=== PATIENT | male | born 1955 | race Caucasian/White ===

== ENCOUNTER 2020-11-24 14:33 | Inpatient (IN) | payer OTHER ==
[~2020-11-24 14:33] MED LIST: Iopamidol-370 76% 500 ML 1 ML ONE
--- NOTE | 2020-11-24 15:00 | CT ---
CT HEAD WITHOUT CONTRAST: 11/24/20 INDICATIONS: Stroke alert. Aphasia. COMPARISON: Comparison made to prior head CT of 05/13/08. FINDINGS: Ventricles have normal size and position. There is no evidence of intracranial mass or hemorrhage. No evidence of acute cortical infarct. Paranasal sinuses and mastoids clear. IMPRESSION: No acute process. No evidence of acute infarct. Findings relayed to Dr. Elizabeth at 2:55 p.m. POS: OFF
[2020-11-24 15:02] LABS: #Basophils 0.1 thou/uL (0.0-0.2); #Eosinphils 0.1 thou/uL (0.0-0.7); #Lymphocytes 2.1 thou/uL (1.20-3.40); #Neutrophils 4.3 thou/uL (1.40-6.50); %Basophils 0.7 % (0.0-1.0); %Eosinophils 1.6 % (0.0-10.0); %Monocytes 13.6 % (0.0-10.0); %Neutrophils 56.2 % (42.0-75.0); Hemoglobin 15.3 g/dL (14.0-18.0); Mean Corpuscular HGB CONC 33.4 g/dL (32.0-36.0); Mean Corpuscular Hemoglobin 32.4 pg (27.0-31.0); Mean Corpuscular Volume 96.9 fL (78.0-98.0); Platelet Count 195 thou/uL (130-400); RBC Distribution Width 11.5 % (11.5-14.5); Red Blood Cell (RBC) Count 4.71 mill/uL (4.70-6.10); White Blood Cell (WBC) Count 7.6 thou/uL (4.8-10.8)
[2020-11-24 15:10] LABS: Prothrombin Time 13.5 sec (12.0-14.7)
[2020-11-24 15:17] LABS: PTT 21.6 sec (22.9-36.1)
[2020-11-24 15:35] LABS: Albumin 3.3 g/dL (3.4-4.8)
[2020-11-24 15:36] LABS: Chloride 106 mmol/L (98-107); Potassium 5.1 mmol/L (3.5-5.1); Sodium 136 mmol/L (136-145)
[2020-11-24 15:37] LABS: Glucose 104 mg/dL (80-115)
[2020-11-24 15:38] LABS: Globulin 4.9 g/dL (2.4-3.5); Protein, Total 8.2 g/dL (5.8-8.1)
[2020-11-24 15:39] LABS: Anion Gap 15 mmol/L (10-20); Bilirubin, Total 1.1 mg/dL (0.2-1.2); Carbon Dioxide 20 mmol/L (23-31)
[2020-11-24 15:40] LABS: Alkaline Phosphatase 125 U/L (40-110)
[2020-11-24 15:41] LABS: BUN (Urea Nitrogen) 18 mg/dL (8.4-25.7); Calc. Creatinine Clearance 0 mL/min (70-130)
[2020-11-24 15:42] LABS: AST (SGOT) 76 U/L (5-34)
[2020-11-24 15:43] LABS: ALT (SGPT) 129 U/L (8-55)
--- NOTE | 2020-11-24 15:54 | CT ---
CTA HEAD CTA NECK: Axial tomograms were obtained through the head and neck following angio protocol with multiplanar rec onstruction and 3D post processing. INDICATION: Stroke protocol. Right side weakness and aphasia. FINDINGS: CTA HEAD: The intracranial internal carotid arteries are patent and symmetric. Cavernous ICAs are patent and s ymmetric. The ICA terminus appears symmetric bilaterally and the M1 segments of both middle cerebral arteries a re patent and symmetric. There is mild narrowing of the A1 segment on the right seen on axial images , although not well confirmed on coronal. Anterior cerebral arteries otherwise unremarkable. Review of the M2 and M3 branches of the middle cerebral arteries show evidence of occlusion of a sing le left M2 branch at the genu on the left in the anterior sylvian fissure. This does result in decre ased parasylvian arteries on the left when compared to the right. The M2 and M3 branches on the right appear patent. Basilar artery is patent. Posterior cerebral arteries appear patent and symmetric. IMPRESSION: Evidence of an occlusion of a proximal left M2 branch at the genu in the region of the anterior sylvi an fissure on the left. CTA NECK: No stenosis seen at the origin of the arch vessels. Common carotid arteries are patent and symmetric . Mild atherosclerotic calcification in both bulbs; however, no stenosis is seen in either extracran ial internal carotid artery. Vertebral arteries are patent. Mildly dominant right vertebral. Vertebrals otherwise unremarkable. IMPRESSION: No significant stenosis in either extracranial internal carotid artery. Findings related to Dr. Elizabeth. CODE CR POS: OFF
--- NOTE | 2020-11-24 17:14 | PDOC.HHP ---
Hospitalist HPI - History of Present Illness Right weakness, expressive aphasia History of Present Illness: PCP: Dr. Guerrero The patient is a 65-year-old male with a past medical history significant for hypertension and psoriatic arthritis that presents to the emergency department via EMS as a stroke alert. The patient's spouse reports the acute onset of right-sided weakness and facial droop with expressive aphasia 45 minutes prior to arrival to the emergency department. Documented last seen normal time of 1425. Also, he tested positive for COVID-19 virus on 11/09/2020. His symptoms persisted, so a follow up CXR was ordered. Subsequently, he was diagnosed with "pneumonia". He was started on a doxycycline. Since, he reports feeling fairly well. He denies any recent trauma or falls. No headaches, dysphagia or changes in vision. Denies chest pain, heart palpitations or lightheadedness. No swelling to his lower extremities. No history of DVT/PE. Denies any dysuria or hematuria. EMS was called. Upon arrival, the patient was noted be tachycardic with normal blood pressure, respiratory rate, SPO2, and was afebrile. He was brought to the hospital for further evaluation. Upon arrival to the ED, the patient's symptoms had improved. There was noted expressive aphasia, however, his right-sided weakness had improved. CTA head showed an occlusion to the left M2 branch in the region of the anterior sylvian fissure on the left. Neurosurgery was consulted and the decision was made to give TPA. The patient was amenable. ED Course: VITAL SIGNS SunNov 24, 2020 14:42 DAPHNEY Mendoza Mckenna BP: 127/91, Pulse: 99, Resp: 21, Temp: 98.9 (Oral), O2 sat: 96 on (Room Air), Time: 11/24/2020 14:42. VITAL SIGNS SunNov 24, 2020 16:00 DAPHNEY Walsh Rachel BP: 138/89, Pulse: 75, Resp: 16, Temp: 98.4 (Oral), Pain: 0, O2 sat: 98 on (Room Air), Time: 11/24/2020 16:00. VITAL SIGNS SunNov 24, 2020 16:15 DAPHNEY Walsh Rachel BP: 131/87, Pulse: 76, Resp: 17, Pain: 0, O2 sat: 97 on (Room Air), Time: 11/24/2020 16:15. VITAL SIGNS SunNov 24, 2020 16:30 DAPHNEY Walsh Rachel BP: 127/87, Pulse: 88, Resp: 17, Pain: 0, O2 sat: 97 on (Room Air), Time: 11/24/2020 16:30. VITAL SIGNS SunNov 24, 2020 16:45 DAPHNEY Walsh Rachel BP: 117/72, Pulse: 79, Resp: 18, Pain: 0, O2 sat: 97 on (Room Air), Time: 11/24/2020 16:45 Medications: Activase per protocol mg IV Push Given 16:12 11/24/2020 Hospitalist ROS - Review of Systems All other systems reviewed; all pertinent +/- noted in HPI/Subj - Medication Medications: doxycycline hyclate oral SunNov 24, 2020 15:16 DAPHNEY Garner Amanda tablet : Strength - 100 mg : ORAL Patient Dose: 1 tab(s) 2 times a day.FOR 10 DAYS. predniSONE SunNov 24, 2020 15:16 DAPHNEY Garner Amanda tablet : Strength - 1 mg : ORAL Patient Dose: 1 tab(s) 4 times a day. losartan-hydrochlorothiazide SunNov 24, 2020 15:17 DAPHNEY Garner Amanda tablet : Strength - 50 mg-12.5 mg : ORAL Patient Dose: 1 tab(s) once a day. Enbrel SunNov 24, 2020 15:19 DAPHNEY Garner Amanda syringe : Strength - 25 mg/0.5 mL (0.51 mL) : [0.51 mL(s)] : SUBCUTANEOUS Patient Dose: UNK once a week. albuterol SunNov 24, 2020 15:19 DAPHNEY Garner Amanda aerosol : Strength - 90 mcg : INHALATION Patient Dose: As Needed. hydroxychloroquine SunNov 24, 2020 15:20 DAPHNEY Garner Amanda tablet : Strength - 200 mg : ORAL Patient Dose: 1 tab(s) 2 times a day. Allergies: Penicillin Hospitalist History - Past Medical History Source: patient, family, RN notes reviewed Cardiac: reports: HTN Rheumatologic: reports: Other (Psoriatic arthritis) - Past Surgical History Past Surgical History: reports: Other (Knee sx, hernia, facial reconstruction) - Family History Family History: denies: cerebrovascular accident - Social History Alcohol: reports: None Drugs: reports: none Living Situation: With Family Activity level: independent ambulation - Exam General Appearance: NAD, awake alert. negative: ill appearing Eye: PERRL, anicteric sclera ENT: normocephalic atraumatic, dry oral mucosa Neck: supple, no carotid bruit Heart: RRR, no murmur, no gallops, no rubs, normal peripheral pulses Respiratory: CTAB, no wheezes, no rales, no ronchi, normal chest expansion, no tachypnea Gastrointestinal: soft, non-tender, non-distended, normal bowel sounds, no bruit, no guarding Extremities: no cyanosis, no edema Skin: no rashes Neurological: no weakness, speech deficit (Expressive aphasia and slurring of speech). negative: facial droop Neurological - other findings: NIH 2 Musculoskeletal: normal tone, normal strength Psychiatric: normal affect, A&O x 3 Hospitalist Results - Labs Result Diagrams: 11/24/20 14:50 11/24/20 14:50 Lab results: WBC 7.6 thou/uL (4.8-10.8) 11/24/20 14:50 Hgb 15.3 g/dL (14.0-18.0) 11/24/20 14:50 Hct 45.7 % (42.0-52.0) 11/24/20 14:50 MCV 96.9 fL (78.0-98.0) 11/24/20 14:50 Plt Count 195 thou/uL (130-400) 11/24/20 14:50 Neutrophils % 56.2 % (42.0-75.0) 11/24/20 14:50 Sodium 136 mmol/L (136-145) 11/24/20 14:50 Potassium 5.1 mmol/L (3.5-5.1) 11/24/20 14:50 Chloride 106 mmol/L (98-107) 11/24/20 14:50 Carbon Dioxide 20 mmol/L (23-31) L 11/24/20 14:50 BUN 18 mg/dL (8.4-25.7) 11/24/20 14:50 Creatinine 0.98 mg/dL (0.7-1.3) 11/24/20 14:50 Glucose 104 mg/dL (80-115) 11/24/20 14:50 Calcium 9.0 mg/dL (7.8-10.44) 11/24/20 14:50 Total Bilirubin 1.1 mg/dL (0.2-1.2) 11/24/20 14:50 AST 76 U/L (5-34) H 11/24/20 14:50 ALT 129 U/L (8-55) H 11/24/20 14:50 Alkaline Phosphatase 125 U/L (40-110) H 11/24/20 14:50 Troponin I Less than 0.010 ng/mL (< 0.028) 11/24/20 14:50 Serum Total Protein 8.2 g/dL (5.8-8.1) H 11/24/20 14:50 Albumin 3.3 g/dL (3.4-4.8) L 11/24/20 14:50 - EKG Interpretation EK lead EKG interpreted by Emergency Department Physician at time of study, 12 lead EKG shows, sinus tachycardia, Rate (beats per minute): 109, Interpretation:, Conduction normal, ST segments normal, T waves, [place] normal, Clinical impression:, No acute findings for ischemia at this time - Radiology Interpretation CT scan - head Status: report reviewed by me Additional Comment: CT brain: IMPRESSION: No acute process. No evidence of acute infarct. CTA head and neck: IMPRESSION: Evidence of an occlusion of a proximal left M2 branch at the genu in the region of the anterior sylvian fissure on the left. IMPRESSION: No significant stenosis in either extracranial internal carotid artery. Hospitalist H&P A/P - Problem (1) CVA (cerebral vascular accident) Code(s): I63.9 - CEREBRAL INFARCTION, UNSPECIFIED Status: Acute (2) Expressive aphasia Code(s): R47.01 - APHASIA Status: Acute (3) Elevated LFTs Code(s): R79.89 - OTHER SPECIFIED ABNORMAL FINDINGS OF BLOOD CHEMISTRY Status: Acute (4) HTN (hypertension) Code(s): I10 - ESSENTIAL (PRIMARY) HYPERTENSION Status: Chronic (5) Psoriatic arthritis Code(s): L40.50 - ARTHROPATHIC PSORIASIS, UNSPECIFIED Status: Chronic - Plan Plan: A patient with HTN, psoriatic arthritis and recent Covid diagnosis presents as a stroke alert. Admit to CCU, inpatient status. Presented right weakness and expressive aphasia CT brain negative for any acute process CTA neck no significant stenosis in either extracranial internal carotid artery. CTA head evidence of an occlusion of the proximal left M2 branch. Activase given at 1612. #CVA Upon assessment, symptoms rapidly improved. NIH 2, mild expressive aphasia and slurring of speech. TPA protocol, hold blood thinners [address] in a.m. Strict blood pressure control. Consult neurology and stroke team Neurochecks. #Expressive aphasia Likely related to problem #1. #Elevated LFTs ALT 129, AST 76, normal T bili We will recheck in a.m. #HTN Chronic, well controlled. Presented normotensive. Takes lisinopril/HCTZ at home. We will hold home antihypertensives for now. #Sporadic arthritis Takes Enbrel weekly. Appears stable at this time. SCDs for DVT prophylaxis. No pharmacological DVT prophylaxis. No GI prophylaxis. CODE STATUS is full code. Contact is his Samantha at [phone]. Discussed the case with attending physician, Dr. Rodriguez who agrees with plan of care.
[2020-11-24] MEDS ORDERED: hydrALAZINE 20 MG/ML VIAL SLOW IVP PRN (17:25)
[2020-11-24] MEDS ORDERED: Acetaminophen 325 MG TAB PO PRN (17:25)
[2020-11-24] MEDS ORDERED: Labetalol HCl 100 MG/20 ML VIAL SLOW IVP PRN (17:25)
[2020-11-24] MEDS ORDERED: niCARdipine 25 MG in Sodium Chloride 0.9% 250 ML 240 ML IVPB PRN (17:25)
--- NOTE | 2020-11-24 17:55 | PDOC.EVN ---
Event Note - Event Note Event Note: Patient was seen and examined. From background information the patient was actually diagnosed with Covid on November 09. He was still having some chest congestion/cough symptoms on November 19. At that time he had a chest x-ray that look like persistent Covid changes. He was diagnosed with "pneumonia" and was started on doxycycline. He reports that he is actually been doing quite well with that and felt like he was over any Covid related symptoms. Patient presented with some right-sided weakness, facial droop, expressive aphasia. Apparently in route his symptoms of weakness resolved and he was primarily left with expressive aphasia. In the emergency department the patient was noted to have an M 2 branch occlusion at the sylvian fissure on the left. The ER physician discussed the case with Dr. Ye Patterson, the neurosurgeon. They agreed to give the patient TPA and the patient was amenable. Post initiation of the TPA the patient continues to have some mild expressive aphasia with some waxing and waning. The time of my exam is actually not too bad. His exam otherwise is largely unremarkable. He does not have any appreciable weakness. He is continuing the TPA infusion at this time. We will initiate the post TPA order set. Continue frequent neuro checks. Technically the patient will be admitted to the ICU but with the lack of beds will likely be monitored here in the emergency department. We will repeat CT at 24 hours. Obtain normal stroke work-up with MRI, echo. Keep him on telemetry. Consult neurology, OT, PT, DEPUTY HEAD. Patient will ultimately need to be on aspirin and statin therapy.
--- NOTE | 2020-11-24 18:00 | CT ---
CT Brain WO Con: 11/24/2020 5:43 PM CLINICAL HISTORY: Level 1 stroke status post TPA. IMAGING TECHNIQUE: Multiple CT images were obtained of the brain without IV contrast. COMPARISON: CTA of the head dated November 24, [address] the brain dated November 24 021 at 2:49 PM FINDINGS: BRAIN: Evidence of acute infarct: There is evidence now of acute infarct involving the left insular cortex and the lateral aspect of the anterior left frontal lobe on image 34 series 2. This coincides with the patient's known M2 branch occlusion on the left, seen on the prior CT exam. Evidence of chronic ischemic change:None. Evidence of intracranial hemorrhage: None. Evidence of brain volume loss:None. Evidence of midline shift: Third ventricle and septum pellucidum are midline. Ventricles: Normal. No hydrocephalus. SKULL: Intact. VISUALIZED PARANASAL SINUSES: Small mucous retention cyst involving the right maxillary sinus. MASTOID AIR CELLS: Clear. EXTRACRANIAL SOFT TISSUES: Normal. IMPRESSION: Acute infarct seen within the region of the left insular cortex and lateral aspect of the anterior le ft frontal lobe in a left MCA distribution. This coincides the patient's known M2 MCA branch occlusion seen on the comparison CT exam. No intracranial hemorrhage evident. Findings called to Dr. Elizabeth at 5:55 PM on November 24, 2019.
[2020-11-25] MEDS: Atorvastatin Calcium 40 MG TAB PO SCH ×2 (01:10→19:57)
[2020-11-25 01:30] VITALS: BMI 25.2
[2020-11-25] MEDS: Communication Order-Pharmacy FS SCH ×2 (02:30→19:21)
--- NOTE | 2020-11-25 09:39 | MRI ---
Exam: Brain MRI without contrast HISTORY: Level 1 stroke. Status post TPA. COMPARISON: None FINDINGS: Calvarial marrow signal intensity: Appropriate T1 signal Gradient echo sequence: Small focus of hemosiderin deposition in the left parietal lobe. No definite acute hemorrhage on the axial gradient echo sequence. Brain parenchyma: No mass, mass effect or midline shift. Brain volume, age-appropriate. Cortical reid-white matter differentiation: Is loss of cortical reid-white matter differentiation inv olving the left insular cortex. Restricted diffusion: Central arterial flow voids are maintained. There is restricted diffusion invol ving the left insular cortex. White matter signal intensities:T2 and FLAIR hyperintensity involving the left insular cortex infarct . No significant white matter hyperintensities to suggest chronic small vessel ischemic changes Sinuses: Adequate aeration of the paranasal sinuses and mastoid air cells. IMPRESSION: 1. Acute left insular cortical infarct.
--- NOTE | 2020-11-25 09:50 | CT ---
Exam: Head CT without contrast HISTORY: Level 1 stroke. Expressive aphasia. Left-sided weakness. Right facial droop. COMPARISON: 11/24/2020 FINDINGS: Hemorrhage: No intraparenchymal hemorrhage or extra-axial hematoma. Brain parenchyma: Evolutionary changes secondary left MCA distribution infarct is noted. These change s involve the left insular cortex where there is mild loss of reid-white matter differentiation and hypoattenuation.Subtle hyperdensity involving the proximal left MCA distribution, the M2 levels is no diandra. These hypodensities are predominantly in the left sylvian fissure. Ventricular system: Ventricles and sulci are patent and symmetric. Calvarium: Intact. Sinuses and mastoid air cells: Adequate aeration. IMPRESSION: 1. Expected evolutionary changes secondary to left MCA distribution infarct. These evolutionary urbina es are noted in the left insular cortex. 2. No intraparenchymal hemorrhage.
--- NOTE | 2020-11-25 14:27 | CON ---
NEUROLOGY CONSULTATION DATE OF CONSULTATION: 11/25/2020 REASON FOR CONSULTATION: Right-sided weakness, expressive aphasia. HISTORY OF PRESENT ILLNESS: Mr. Davis is a 65-year-old male with medical history significant for hypertension, psoriatic arthritis, presented to the emergency room via EMS. He presented as a stroke alert. The patient's spouse reported acute onset right-sided weakness and facial droop with expressive aphasia 45 minutes prior to arrival to the emergency room. The patient was last seen normal at 1425 hours. He tested positive for COVID-19 virus on 11/09/2020 and has mild symptoms of cough and was diagnosed with pneumonia and was started on doxycycline. Per the patient, he has been feeling well and denies any shortness of breath, fever, lightheadedness, chest pain, palpitation, vertigo, dizziness, double vision, loss of vision, loss of consciousness, abnormal involuntary movements associated with the episode. He was brought to the emergency room, and at that time, his right-sided weakness was almost resolved, but he still had expressive aphasia. Head CT was done and CTA showed occlusion of the left M2 branch in the region of the anterior sylvian fissure on the left. Neurosurgery was consulted and decision was made to give him tPA, which the patient agreed. In the emergency room, his blood pressure was 127/91, pulse 99, respiratory rate 21. The patient was given tPA IV push at 1612 hours on 11/24/2020. REVIEW OF SYSTEMS: All systems reviewed and were negative except for the pertinent positives and negatives mentioned in the HPI. HOME MEDICATIONS: 1. Doxycycline. 2. Prednisone. 3. Losartan-hydrochlorothiazide. 4. Enbrel. 5. Albuterol. 6. Hydroxychloroquine. ALLERGIES: PENICILLIN. PAST MEDICAL HISTORY: 1. Hypertension. 2. Psoriatic arthritis. PAST SURGICAL HISTORY: 1. Knee surgery. 2. Hernia repair. 3. Facial reconstruction. FAMILY HISTORY: The patient denies any family history of CVA. SOCIAL HISTORY: The patient lives with family. Denies alcohol, illegal drug use, or smoking. PHYSICAL EXAMINATION: VITAL SIGNS: Blood pressure 127/90, pulse 90, respiratory rate 18. General Appearance: NAD, awake alert. negative: ill appearing Eye: PERRL, anicteric sclera ENT: normocephalic atraumatic, dry oral mucosa Neck: supple, no carotid bruit Heart: RRR, no murmur, no gallops, no rubs, normal peripheral pulses Respiratory: CTAB, no wheezes, no rales, no ronchi, normal chest expansion, no tachypnea Gastrointestinal: soft, non-tender, non-distended, normal bowel sounds, no bruit, no guarding Extremities: no cyanosis, no edema Skin: no rashes Neurological: Mental status; the patient is alert and oriented to person, place, and time. Speech; he does have speech deficit, expressive aphasia, and dysarthria. Cranial nerves 2 through 12 intact except 10 dysarthria. Motor; muscle tone and bulk are normal. Moving all 4 extremities equally and symmetrically. Sensory intact. Cerebellar, finger-nose testing intact. Gait deferred due to the patient's safety reason. DATA REVIEWED: I reviewed the labs, which were essentially unremarkable. EKG showed sinus tachycardia with heart beat per minute 109. Head CT did not reveal any acute intracranial process. CTA of the head and neck showed evidence of an occlusion of the proximal left M2 branch in the region of the anterior sylvian fissure on the left. No significant stenosis in either extracranial internal carotid artery. Lab results: WBC 7.6 thou/uL (4.8-10.8) 11/24/20 14:50 Hgb 15.3 g/dL (14.0-18.0) 11/24/20 14:50 Hct 45.7 % (42.0-52.0) 11/24/20 14:50 MCV 96.9 fL (78.0-98.0) 11/24/20 14:50 Plt Count 195 thou/uL (130-400) 11/24/20 14:50 Neutrophils % 56.2 % (42.0-75.0) 11/24/20 14:50 Sodium 136 mmol/L (136-145) 11/24/20 14:50 Potassium 5.1 mmol/L (3.5-5.1) 11/24/20 14:50 Chloride 106 mmol/L (98-107) 11/24/20 14:50 Carbon Dioxide 20 mmol/L (23-31) L 11/24/20 14:50 BUN 18 mg/dL (8.4-25.7) 11/24/20 14:50 Creatinine 0.98 mg/dL (0.7-1.3) 11/24/20 14:50 Glucose 104 mg/dL (80-115) 11/24/20 14:50 Calcium 9.0 mg/dL (7.8-10.44) 11/24/20 14:50 Total Bilirubin 1.1 mg/dL (0.2-1.2) 11/24/20 14:50 AST 76 U/L (5-34) H 11/24/20 14:50 ALT 129 U/L (8-55) H 11/24/20 14:50 Alkaline Phosphatase 125 U/L (40-110) H 11/24/20 14:50 Troponin I Less than 0.010 ng/mL (< 0.028) 11/24/20 14:50 Serum Total Protein 8.2 g/dL (5.8-8.1) H 11/24/20 14:50 Albumin 3.3 g/dL (3.4-4.8) L 11/24/20 14:50 - EKG Interpretation EK lead EKG interpreted by Emergency Department Physician at time of study, 12 lead EKG shows, sinus tachycardia, Rate (beats per minute): 109, Interpretation:, Conduction normal, ST segments normal, T waves, [place] normal, Clinical impression:, No acute findings for ischemia at this time - Radiology Interpretation CT scan - head Status: report reviewed by me Additional Comment: CT brain: IMPRESSION: No acute process. No evidence of acute infarct. CTA head and neck: IMPRESSION: Evidence of an occlusion of a proximal left M2 branch at the genu in the region of the anterior sylvian fissure on the left. IMPRESSION: No significant stenosis in either extracranial internal carotid artery. ASSESSMENT AND PLAN: (1) CVA (cerebral vascular accident) Code(s): I63.9 - CEREBRAL INFARCTION, UNSPECIFIED Status: Acute (2) Expressive aphasia Code(s): R47.01 - APHASIA Status: Acute (3) Elevated LFTs Code(s): R79.89 - OTHER SPECIFIED ABNORMAL FINDINGS OF BLOOD CHEMISTRY Status: Acute (4) HTN (hypertension) Code(s): I10 - ESSENTIAL (PRIMARY) HYPERTENSION Status: Chronic (5) Psoriatic arthritis Code(s): L40.50 - ARTHROPATHIC PSORIASIS, UNSPECIFIED Status: Chronic Mr. Babar Davis is a 65-year-old male with history significant for COVID pneumonia, psoriatic arthritis, hypertension, presented as a stroke alert because of acute onset right-sided weakness and expressive aphasia Head CT reviewed, which was negative for acute intracranial pathology. The patient's CTA did not reveal significant stenosis in the extracranial internal carotid artery. CTA of head showed evidence of an occlusion of the left M2 branch and he was given tPA at 1612 hours on 11/24/2020 and his symptoms improved except for dysarthria and mild expressive aphasia. Continue frequent neuro checks. Hold blood thinners for the next 24 hours. Admit to CCU. Repeat head CT 24 hours post tPA. If negative for bleed, then start aspirin and high-intensity statin for secondary stroke prevention. Permissive control of blood pressure at this time. Strict control of blood glucose. Telemetry to rule out arrhythmias. 2D echo to evaluate for left ventricular ejection fraction and to rule out PFO or thrombus. PT/OT/Speech. DVT prophylaxis with SCDs. GI prophylaxis. MRI of the brain to assess for intracranial process. We will continue to follow. Thank you for the consult. Job ID: [id number] [id number]
[2020-11-25 17:41] LABS: Hemoglobin 15.1 g/dL (14.0-18.0); Mean Corpuscular Hemoglobin 32.5 pg (27.0-31.0); Mean Corpuscular Volume 95.5 fL (78.0-98.0); Mean Platelet Volume 7.4 fL (7.4-10.4); Platelet Count 394 thou/uL (130-400); RBC Distribution Width 11.4 % (11.5-14.5); Red Blood Cell (RBC) Count 4.66 mill/uL (4.70-6.10); White Blood Cell (WBC) Count 9.9 thou/uL (4.8-10.8)
--- NOTE | 2020-11-25 18:09 | CON ---
DATE OF CONSULTATION: 11/25/2020 REASON FOR CONSULTATION: Embolic stroke. HISTORY OF PRESENT ILLNESS: Mr. Davis is a pleasant 65-year-old white gentleman, who comes to the hospital for expressive aphasia and right-sided weakness. He was brought in by EMS about 45 minutes into his episode. He was diagnosed with an acute stroke with imaging. Neurosurgery was consulted as he had an occluded middle cerebral artery branch and they recommended tPA. He received tPA in the ER and actually, his expressive aphasia has improved significantly. Cardiology is being consulted to see if there are any embolic issues with his stroke. He was diagnosed with COVID-19 pneumonia. He started having symptoms on November 04. He finally was tested on November 09, and more recently, he was given antibiotics as his shortness of breath progressed and it was thought that he had developed a bacterial pneumonia. He otherwise has no other issues. PAST MEDICAL HISTORY: Include: 1. Psoriatic arthritis. 2. Hypertension. OUTPATIENT MEDICATIONS: 1. Doxycycline. 2. Prednisone. 3. Losartan/hydrochlorothiazide 50/12.5 mg a day. 4. Enbrel. 5. Albuterol inhaler. 6. Hydroxychloroquine. ALLERGIES: PENICILLIN. SOCIAL HISTORY: No alcohol, tobacco, or drugs. FAMILY HISTORY: Noncontributory. REVIEW OF SYSTEMS: A 12-point review of systems was done and was found to be negative other than stated in the history of present illness. PHYSICAL EXAMINATION: VITAL SIGNS: Temperature 98.3, pulse 81, respiratory rate 19, saturating 98% on room air, and blood pressure 145/77. GENERAL: Awake, alert, oriented x3, and in no distress. HEENT: Normocephalic, atraumatic. NECK: Supple. LUNGS: Clear. CARDIOVASCULAR: S1 and S2. No S3 or S4. No murmurs. No rubs. ABDOMEN: Soft. Positive bowel sounds. EXTREMITIES: No edema. SKIN: Warm and dry. LABORATORY DATA: Laboratory work was reviewed. White count of 9, hemoglobin of 15, hematocrit 44, platelet count of 394. Coags were reviewed. Chemistries were reviewed. Troponin undetectable. AST 76, ALT 129, alkaline phosphatase 125, albumin of 3.3. MRI of the brain shows left insular cortical infarct. CTA showed occlusion of the proximal left M2 branch of the genu in the region of the anterior sylvian fissure on the left. ASSESSMENT AND PLAN: Include: 1. Acute CVA. 2. Status post tPA with improvement of symptoms. 3. Convalescent from COVID-19 pneumonia. 4. Elevated LFTs. PLAN: 1. Currently, we will do an echocardiogram to assess for any intracardiac issues as far as the thrombus formation is concerned. 2. More than likely, this is a hypercoagulable state related to COVID-19 recent infection and he may need to be on full anticoagulation for at least 3 more months from now. 3. We will plan on continued telemetry monitoring, and then once he is out of this acute phase, bring him back and possibly do a long-term monitor if he is interested. 4. Otherwise, no new recommendations other than start full anticoagulation once safe from the post-tPA status. Job ID: [id number]
[2020-11-25 18:10] LABS: ALT (SGPT) 101 U/L (8-55); AST (SGOT) 37 U/L (5-34); Albumin 3.5 g/dL (3.4-4.8); Alkaline Phosphatase 127 U/L (40-110); Anion Gap 9 mmol/L (10-20); BUN (Urea Nitrogen) 21 mg/dL (8.4-25.7); Bilirubin, Total 1.2 mg/dL (0.2-1.2); Calc. Creatinine Clearance 99 mL/min (70-130); Calcium 8.6 mg/dL (7.8-10.44); Carbon Dioxide 30 mmol/L (23-31); Cardiac Risk 5.2 (Less than 4.5); Chloride 101 mmol/L (98-107); Cholesterol 124 mg/dl (< 200 Desired); Globulin 3.5 g/dL (2.4-3.5); Glucose 100 mg/dL (80-115); HDL Cholesterol 24 mg/dL (>60 Neg Risk); LDL Cholesterol, Calculated 72 mg/dL; Sodium 136 mmol/L (136-145); Triglycerides 140 mg/dL (Less than 150)
[2020-11-25 18:12] LABS: Band 2 % (5-11); Lymphocytes 22 % (21-51); MDiff Complete? YES; Monocytes 12 % (0-10); Neutrophil 58 % (42-75); Platelet Morphology Comment Appears Adequate; RBC Morphology Normal; Reactive Lymphocytes 5 % (0-10)
[2020-11-25] MEDS: Aspirin 325 mg Enteric Coated Tablet PO SCH (19:20)
[2020-11-25] MEDS: Enoxaparin Sodium 40 MG/0.4 ML SYRINGE SC SCH (19:56)
[2020-11-25] MEDS: Doxycycline 100 MG CAP PO SCH (19:57)
--- NOTE | 2020-11-25 22:37 | PDOC.HOSPP ---
- Subjective Encounter Date: 11/25/20 Encounter Time: 15:00 Subjective: Patient seen and examined for acute CVA s/p TPA. No new focal deficit. Weakness and speech improving - Objective Vital Signs & Weight: Vital Signs (12 hours) Temp Pulse Pulse Pulse Resp BP BP 11/25/20 20:02 98.0 F 69 18 11/25/20 18:08 75 94 121/79 134/77 BP Pulse Ox 11/25/20 20:02 118/77 98 11/25/20 18:08 Weight Weight 186 lb 9.588 oz I&O: 11/24/20 11/25/20 11/26/20 06:59 06:59 06:59 Intake Total 237 Balance 237 Result Diagrams: 11/25/20 17:20 11/25/20 17:20 Additional Labs: Abnormal Lab Results - Last 48 hrs 11/24/20 14:50: Carbon Dioxide 20 L, AST 76 H, ALT 129 H, Alkaline Phosphatase 125 H, Serum Total Protein 8.2 H, Albumin 3.3 L, Globulin 4.9 H, Albumin/Globulin Ratio 0.7 L 11/24/20 14:50: MCH 32.4 H, Monocytes % 13.6 H, Monocytes # 1.0 H 11/24/20 14:50: APTT 21.6 L 11/25/20 17:20: Anion Gap 9 L, AST 37 H, ALT 101 H, Alkaline Phosphatase 127 H, Albumin/Globulin Ratio 1.0 L 11/25/20 17:20: RBC 4.66 L, MCH 32.5 H, RDW 11.4 L, Band Neuts % (Manual) 2 L, Monocytes % (Manual) 12 H Radiology Reviewed by me: Yes (MRI brain - Acute CVA) EKG Reviewed by me: Yes (Sinus rhythm on telemetry) Hospitalist ROS - Review of Systems Respiratory: denies: cough, dry, shortness of breath, hemoptysis, SOB with excertion, pleuritic pain, sputum, wheezing, other Cardiovascular: denies: chest pain, palpitations, orthopnea, paroxysmal noc. dyspnea, edema, light headedness, other - Medication Medications: Active Medications Generic Name Dose Route Start Last Admin Trade Name Freq PRN Reason Stop Dose Admin Aspirin 325 mg 11/25/20 16:00 11/25/20 19:20 Aspirin 325 Mg Enteric Coated Tablet PO 325 mg 1600 KASSY Administration Atorvastatin Calcium 40 mg 11/24/20 21:00 11/25/20 19:57 Atorvastatin Calcium 40 Mg Tab PO 40 mg HS KASSY Administration Doxycycline Hyclate 100 mg 11/25/20 21:00 11/25/20 19:57 Doxycycline 100 Mg Cap PO 12/05/20 21:01 100 mg Q12HR KASSY Administration Enoxaparin Sodium 40 mg 11/25/20 21:00 11/25/20 19:56 Enoxaparin Sodium 40 Mg/0.4 Ml Syringe SC 40 mg 2100 KASSY Administration Sodium Chloride 10 ml 11/24/20 21:00 11/25/20 19:57 Flush - Normal Saline 10 Ml Syringe IVF 10 ml Q12HR KASSY Administration - Exam General Appearance: awake alert Neck: supple, no JVD Heart: RRR, no gallops, no rubs, normal peripheral pulses Respiratory: no wheezes, no rales, normal chest expansion, no tachypnea Gastrointestinal: soft, non-tender, non-distended, normal bowel sounds, no guarding Extremities: no cyanosis, no clubbing Neurological: no new deficit Psychiatric: normal affect, A&O x 3 Hosp A/P - Plan DVT proph w/lovenox, DVT proph w/SCDs 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 Await neuro input. Echocardiogram. Will consult cardiology due to embolic CVA. Symptoms are improving. Stroke team. Patient probably does not require COVID 19 isolation since symptom onset was approximately 3 weeks ago. Will continue statins. Lovenox for DVT prophylaxis continue close monitoring
[2020-11-26] MEDS ORDERED: FLU VACC QS2020-21(6MOS UP)/PF 60 MCG/0.5 ML SYRINGE IM ONE (09:00)
[2020-11-26] MEDS ORDERED: Aspirin 325 mg Enteric Coated Tablet PO SCH (09:00)
[2020-11-26] MEDS: Multivit, Therapeutic 1 TAB PO SCH (11:29)
[2020-11-26] MEDS: Doxycycline 100 MG CAP PO SCH ×2 (11:29→21:02)
--- NOTE | 2020-11-26 11:59 | PDOC.CPN ---
- Subjective Date: 11/26/20 Time: 11:57 Interval history: His speech is back to normal this morning. No new issues. - Review of Systems General: denies: fever/chills, weight/appetite/sleep changes, night sweats, fatigue Respiratory: denies: cough, congestion, shortness of breath, exercise intolerance Cardiovascular: denies: chest pain, palpitation, edema, paroxysmal nocturnal dyspnea, orthopnea Gastrointestinal: denies: nausea, vomiting, diarrhea, constipation, abd pain, GI bleeding Musculoskeletal: denies: pain, tenderness, stiffness, swelling, arthr itis/arthralgias Neurological: denies: numbness, syncope, seizure, weakness - Objective Allergies/Adverse Reactions: Allergies Allergy/AdvReac Type Severity Reaction Status Date / Time Penicillins Allergy Verified 11/24/20 17:43 Visit Medications: Current Medications Acetaminophen (Acetaminophen 325 Mg Tab) 650 mg PO Q6H PRN PRN Reason: Headache/Fever/Mild Pain (1-3) Aspirin (Aspirin 325 Mg Enteric Coated Tablet) 325 mg PO 1600 [facility] Last Admin: 11/25/20 19:20 Dose: 325 mg Documented by: Atorvastatin Calcium (Atorvastatin Calcium 40 Mg Tab) 40 mg PO HS [facility] Last Admin: 11/25/20 19:57 Dose: 40 mg Documented by: Doxycycline Hyclate (Doxycycline 100 Mg Cap) 100 mg PO Q12HR [facility] Stop: 12/05/20 21:01 Last Admin: 11/26/20 11:29 Dose: 100 mg Documented by: Enoxaparin Sodium (Enoxaparin Sodium 40 Mg/0.4 Ml Syringe) 40 mg SC 2100 [facility] Last Admin: 11/25/20 19:56 Dose: 40 mg Documented by: Hydralazine HCl (Hydralazine 20 Mg/Ml Vial) 10 mg SLOW IVP Q4H PRN PRN Reason: SBP > 180 or DBP > 105 Nicardipine HCl 25 mg/ Sodium (Chloride) 250 mls @ 0 mls/hr IVPB INF PRN; Protocol PRN Reason: SBP > 180 or DBP > 105 Labetalol HCl (Labetalol Hcl 100 Mg/20 Ml Vial) 10 mg SLOW IVP Q10MIN PRN PRN Reason: SBP > 180 or DBP > 105 Multivitamins (Multivit, Therapeutic 1 Tab) 1 tab PO DAILY [facility] Last Admin: 11/26/20 11:29 Dose: 1 tab Documented by: Sodium Chloride (Flush - Normal Saline 10 Ml Syringe) 10 ml IVF Q12HR KASSY Last Admin: 11/25/20 19:57 Dose: 10 ml Documented by: Sodium Chloride (Flush - Normal Saline 10 Ml Syringe) 10 ml IVF PRN PRN PRN Reason: Saline Flush Vital Signs & Weight: Vital Signs Temp Pulse Pulse Pulse Resp BP BP 11/26/20 11:39 98.1 F 89 18 11/26/20 11:29 11/26/20 08:39 78 89 123/82 106/78 11/26/20 07:43 98.0 F 71 20 11/26/20 06:33 11/26/20 00:00 98.3 F 72 20 BP Pulse Ox 11/26/20 11:39 123/77 95 11/26/20 11:29 96 11/26/20 08:39 11/26/20 07:43 110/74 96 11/26/20 06:33 93 L 11/26/20 00:00 111/81 93 L Weight 186 lb 9.588 oz - Physical Exam General: alert & oriented x3 HEENT: mucus membranes moist Neck: supple neck Cardiac: regular rate and rhythm Lungs: normal breath sounds Neuro: grossly intact Abdomen: active bowel sounds Extremities: no edema Skin: clear Musculoskeletal: no pain - Labs Result Diagrams: 11/25/20 17:20 11/25/20 17:20 Troponin/CKMB Troponin I Less than 0.010 ng/mL (< 0.028) 11/24/20 14:50 - Telemetry Sinus rhythms and dysrhythmias: sinus rhythm - Assessment/Plan Assessment/Plan: 1. Acute CVA 2. Recent COVID 129 pneumonia 3. S/P TPA PLAN: - echo pending - Will need full anticoagulation with Eliquis or warfarin for at leat 6 months, start when safe from neuro perspective. - Will re evaluate as an outpatient in 1 month. May need LINQ ILR.
--- NOTE | 2020-11-26 13:05 | PDOC.NEUPN ---
- Subjective Encounter Date: 11/26/20 Subjective: He is doing well and his weakness is almost resolved and his speech is also improved since yesterday - Objective Vital Signs & Weight: Vital Signs (12 hours) Temp Pulse Pulse Pulse Resp BP BP 11/26/20 11:39 98.1 F 89 18 11/26/20 11:29 11/26/20 08:39 78 89 123/82 106/78 11/26/20 07:43 98.0 F 71 20 11/26/20 06:33 BP Pulse Ox 11/26/20 11:39 123/77 95 11/26/20 11:29 96 11/26/20 08:39 11/26/20 07:43 110/74 96 11/26/20 06:33 93 L Weight Weight 186 lb 9.588 oz I&O: 11/25/20 11/26/20 11/27/20 06:59 06:59 06:59 Intake Total 237 Balance 237 Result Diagrams: 11/25/20 17:20 11/25/20 17:20 Radiology Reviewed by me: Yes EKG Reviewed by me: Yes ROS - Review of Systems Constitutional: denies: fever, chills, sweats, weakness, malaise, other Eyes: denies: pain, vision change, conjunctivae inflammation, eyelid inflammation, redness, other ENT: denies: ear pain, ear discharge, nose pain, nose discharge, nose congestion, mouth pain, mouth swelling, throat pain, throat swelling, other Respiratory: denies: cough, dry, shortness of breath, hemoptysis, SOB with excertion, pleuritic pain, sputum, wheezing, other Cardiovascular: denies: no pertinent history, AFIB, CAD, CHF, HTN, MN, Syncope, Hyperlipidemia, Mitral valve stenosis, Aortic stenosis, Valve insufficiency, Pulmonary hypertension, Other Gastrointestinal: denies: nausea, vomiting, abdominal pain, diarrhea, co nstipation, melena, hematochezia, other Musculoskeletal: denies: neck pain, shoulder pain, arm pain, back pain, hand pain, leg pain, foot pain, other Neurological: reports: weakness, change in speech - Medication Medications: Active Medications Generic Name Dose Route Start Last Admin Trade Name Freq PRN Reason Stop Dose Admin Aspirin 325 mg 11/25/20 16:00 11/25/20 19:20 Aspirin 325 Mg Enteric Coated Tablet PO 325 mg 1600 KASSY Administration Atorvastatin Calcium 40 mg 11/24/20 21:00 11/25/20 19:57 Atorvastatin Calcium 40 Mg Tab PO 40 mg HS KASSY Administration Doxycycline Hyclate 100 mg 11/25/20 21:00 11/26/20 11:29 Doxycycline 100 Mg Cap PO 12/05/20 21:01 100 mg Q12HR KASSY Administration Enoxaparin Sodium 40 mg 11/25/20 21:00 11/25/20 19:56 Enoxaparin Sodium 40 Mg/0.4 Ml Syringe SC 40 mg 2100 KASSY Administration Multivitamins 1 tab 11/26/20 09:00 11/26/20 11:29 Multivit, Therapeutic 1 Tab PO 1 tab DAILY KASSY Administration Sodium Chloride 10 ml 11/24/20 21:00 11/25/20 19:57 Flush - Normal Saline 10 Ml Syringe IVF 10 ml Q12HR KASSY Administration - Exam General Appearance: awake alert Eye: PERRL ENT: normocephalic atraumatic Neck: supple Respiratory: CTAB Cardiovascular: RRR Gastrointestinal: soft Extremities: no cyanosis Skin: normal turgor Neurological: no new deficit Musculoskeletal: normal tone, no muscle wasting PSYCH: normal affect, normal behavior, A&O x 3 Results - Labs Result Diagrams: 11/25/20 17:20 11/25/20 17:20 Lab results: WBC 9.9 thou/uL (4.8-10.8) 11/25/20 17:20 Hgb 15.1 g/dL (14.0-18.0) 11/25/20 17:20 Hct 44.5 % (42.0-52.0) 11/25/20 17:20 MCV 95.5 fL (78.0-98.0) 11/25/20 17:20 Plt Count 394 thou/uL (130-400) 11/25/20 17:20 Neutrophils % 56.2 % (42.0-75.0) 11/24/20 14:50 Band Neuts % (Manual) 2 % (5-11) L 11/25/20 17:20 Sodium 136 mmol/L (136-145) 11/25/20 17:20 Potassium 4.0 mmol/L (3.5-5.1) 11/25/20 17:20 Chloride 101 mmol/L (98-107) 11/25/20 17:20 Carbon Dioxide 30 mmol/L (23-31) 11/25/20 17:20 BUN 21 mg/dL (8.4-25.7) 11/25/20 17:20 Creatinine 0.90 mg/dL (0.7-1.3) 11/25/20 17:20 Glucose 100 mg/dL (80-115) 11/25/20 17:20 Calcium 8.6 mg/dL (7.8-10.44) 11/25/20 17:20 Total Bilirubin 1.2 mg/dL (0.2-1.2) 11/25/20 17:20 AST 37 U/L (5-34) H 11/25/20 17:20 ALT 101 U/L (8-55) H 11/25/20 17:20 Alkaline Phosphatase 127 U/L (40-110) H 11/25/20 17:20 Troponin I Less than 0.010 ng/mL (< 0.028) 11/24/20 14:50 Serum Total Protein 7.0 g/dL (5.8-8.1) 11/25/20 17:20 Albumin 3.5 g/dL (3.4-4.8) 11/25/20 17:20 - EKG Interpretation EKG: No acute abnormalities - Radiology Interpretation MRI - head Additional Comment: MRI of the brain is positive for acute left insular infarct PN A/P (1) CVA (cerebral vascular accident) Code(s): I63.9 - CEREBRAL INFARCTION, UNSPECIFIED Status: Acute (2) Elevated LFTs Code(s): R79.89 - OTHER SPECIFIED ABNORMAL FINDINGS OF BLOOD CHEMISTRY Status: Acute (3) Expressive aphasia Code(s): R47.01 - APHASIA Status: Acute (4) HTN (hypertension) Code(s): I10 - ESSENTIAL (PRIMARY) HYPERTENSION Status: Chronic (5) Psoriatic arthritis Code(s): L40.50 - ARTHROPATHIC PSORIASIS, UNSPECIFIED Status: Chronic - Plan Daily Plan: PT/OT, speech therapy, out of bed/ambulate, DVT proph w/lovenox Mr. Galvez is a 65-year-old male with history significant for positive COVID-19 on November 09, 2020 presented with acute onset right-sided weakness with expressive aphasia which is almost resolved. He is s/p TPA and is doing extremely well. MRI of the brain reviewed which was positive for acute infarction in the left insular cortex. CTA of the neck did not reveal hemodynamically significant stenosis. CTA of the head showed occlusion of the single left M2 segment. Neurosurgery on board. No surgical intervention needed at this time. 2D echo pending Cardiology is on board regarding stroke due to hypercoagulable state. Recommended long-term anticoagulation. Patient can be started on long-term anticoagulation 7 days post stroke onset. Continue aspirin and high intensity statin for secondary stroke prevention. Continue home medications. Monitor blood pressure and strict control of blood glucose. Telemetry to rule out arrhythmias. Continue home medications. Continue medical management per primary team. PT/OT/speech. Plan discussed in detail with the patient.
[2020-11-26] MEDS: Aspirin 325 mg Enteric Coated Tablet PO SCH (17:03)
--- NOTE | 2020-11-26 18:39 | PDOC.HOSPP ---
- Subjective Encounter Date: 11/26/20 Encounter Time: 15:00 Subjective: Patient seen and examined for acute CVA. No new focal deficit. Denies any double vision, blurring of vision or facial asymmetry. No chest pain or shortness of breath reported. - Objective Vital Signs & Weight: Vital Signs (12 hours) Temp Pulse Pulse Pulse Resp BP BP 11/26/20 16:57 97.9 F 81 18 11/26/20 11:39 98.1 F 89 18 11/26/20 11:29 11/26/20 08:39 78 89 123/82 106/78 11/26/20 07:43 98.0 F 71 20 BP Pulse Ox 11/26/20 16:57 124/76 97 11/26/20 11:39 123/77 95 11/26/20 11:29 96 11/26/20 08:39 11/26/20 07:43 110/74 96 Weight Weight 186 lb 9.588 oz I&O: 11/25/20 11/26/20 11/27/20 06:59 06:59 06:59 Intake Total 237 980 Balance 237 980 Result Diagrams: 11/25/20 17:20 11/25/20 17:20 Additional Labs: Abnormal Lab Results - Last 48 hrs 11/25/20 17:20: Anion Gap 9 L, AST 37 H, ALT 101 H, Alkaline Phosphatase 127 H, Albumin/Globulin Ratio 1.0 L 11/25/20 17:20: RBC 4.66 L, MCH 32.5 H, RDW 11.4 L, Band Neuts % (Manual) 2 L, Monocytes % (Manual) 12 H EKG Reviewed by me: Yes (Sinus rhythm on telemetry) Hospitalist ROS - Review of Systems Cardiovascular: denies: chest pain, palpitations, orthopnea, paroxysmal noc. dyspnea, edema, light headedness, other Gastrointestinal: denies: nausea, vomiting, abdominal pain, diarrhea, constipation, melena, hematochezia, other - Medication Medications: Active Medications Generic Name Dose Route Start Last Admin Trade Name Freq PRN Reason Stop Dose Admin Aspirin 325 mg 11/25/20 16:00 11/26/20 17:03 Aspirin 325 Mg Enteric Coated Tablet PO 325 mg 1600 KASSY Administration Atorvastatin Calcium 40 mg 11/24/20 21:00 11/25/20 19:57 Atorvastatin Calcium 40 Mg Tab PO 40 mg HS KASSY Administration Doxycycline Hyclate 100 mg 11/25/20 21:00 11/26/20 11:29 Doxycycline 100 Mg Cap PO 12/05/20 21:01 100 mg Q12HR KASSY Administration Enoxaparin Sodium 40 mg 11/25/20 21:00 11/25/20 19:56 Enoxaparin Sodium 40 Mg/0.4 Ml Syringe SC 40 mg 2100 KASSY Administration Multivitamins 1 tab 11/26/20 09:00 11/26/20 11:29 Multivit, Therapeutic 1 Tab PO 1 tab DAILY KASSY Administration Sodium Chloride 10 ml 11/24/20 21:00 11/26/20 17:03 Flush - Normal Saline 10 Ml Syringe IVF 10 ml Q12HR KASSY Administration - Exam General Appearance: NAD, awake alert Neck: supple, no JVD Heart: RRR, no gallops Respiratory: no wheezes, no ronchi Gastrointestinal: soft, non-tender, no guarding, no rigidity Extremities: no cyanosis Neurological: no new deficit Psychiatric: A&O x 3 Hosp A/P - Plan DVT proph w/lovenox, DVT proph w/SCDs 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 Continue aspirin. Start anticoagulation after 1 week per neuro/cardio. Patient will probably need Linq monitor as outpatient. He was advised to follow-up with cardiology as outpatient. Will continue statins. Continue other medications as above. 11/25 Start aspirin at 1600 (84 hours after TPA). Await neuro input. Echocardiogram. Will consult cardiology due to embolic CVA. Symptoms are improving. Stroke team. Patient probably does not require COVID 19 isolation since symptom onset was approximately 3 weeks ago. Will continue statins. Lovenox for DVT prophylaxis continue close monitoring
[2020-11-26] MEDS ORDERED: Atorvastatin Calcium 10 MG TAB PO SCH (21:00)
[2020-11-26] MEDS: Enoxaparin Sodium 40 MG/0.4 ML SYRINGE SC SCH (21:02)
[2020-11-27] MEDS: Multivit, Therapeutic 1 TAB PO SCH (08:21)
[2020-11-27] MEDS: Doxycycline 100 MG CAP PO SCH (08:21)
[2020-11-27 08:27] VITALS: BP 108/73; TEMP 98
--- NOTE | 2020-11-27 14:31 | PDOC.DS.DS ---
Provider - Provider Date of Admission: 11/24/20 17:25 Date of Discharge: 11/27/20 Admitting Provider: Molina Rodriguez MD Consultations: Cardiology, Neurology Primary Care Physician: Ata Guerrero MD Course - Hospital Course Hospital Course: Patient is a 65-year-old male with hypertension, psoriatic arthritis with recent COVID-19 pneumonia presented to the emergency room with right-sided weakness along with expressive aphasia. CT angiogram of the head and neck on admission was consistent with occlusion of the proximal left M2 branch. CTA of the neck was negative for significant stenosis. Initial CT scan of the brain was negative for acute findings. He was started on TPA. Post TPA he was monitored in the intensive care unit. He was evaluated by cardiology and neurology. MRI of the brain showed acute left insular cortical infarct. Echocardiogram showed ejection fraction 50 to 55% with diastolic dysfunction, mild mitral regu rgitation and mild tricuspid regurgitation. He was placed on aspirin which will be transitioned to Eliquis after 7 days. He will probably need anticoagulation for 6 months per cardiology. He was also advised to follow-up with cardiology as outpatient for possible need of loop recorder. He has been cleared by consultants for discharge. 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 causing right-sided weakness along with speech difficulty s/p TPA Recent COVID 19 pneumonia - symptom onset 11/04 CKD stage II Abnormal LFTs of unclear etiology History of psoriatic arthritis Resuscitation Status: 11/24/20 17:25 Resuscitation Status Routine Co-Sign Provider: Resuscitation Status: FULL: Full Resuscitation Discussed with: Patient - Labs Lab Results: 11/25/20 17:20 11/25/20 17:20 Abnormal Lab Results - Last 48 hrs 11/25/20 17:20: Anion Gap 9 L, AST 37 H, ALT 101 H, Alkaline Phosphatase 127 H, Albumin/Globulin Ratio 1.0 L 11/25/20 17:20: RBC 4.66 L, MCH 32.5 H, RDW 11.4 L, Band Neuts % (Manual) 2 L, Monocytes % (Manual) 12 H - Physical Exam Vitals: Vital Signs (12 hours) Temp Pulse Resp BP Pulse Ox 11/27/20 08:00 98.0 F 64 18 108/73 98 11/27/20 04:00 97.5 F L 79 18 98 11/27/20 03:31 97.8 F 68 22 H 114/68 96 Weight Weight 186 lb 9.588 oz Physical Exam: The patient was seen and examined on the day of discharge. Plan - Discharge Medications Prescriptions: Apixaban [Eliquis] 5 mg PO BID #60 tablet Atorvastatin Calcium [Lipitor] 10 mg PO HS #30 tab Pantoprazole [Protonix] 40 mg PO DAILY #30 tab Home Medications: Medication Instructions Recorded Confirmed Type Albuterol Sulfate [Proair 90 mcg IH SEEPHYS PRN 11/24/20 11/24/20 History Digihaler] Doxycycline Hyclate 100 mg PO Q12HR 11/24/20 11/24/20 History Losartan/Hydrochlorothiazide 1 each PO DAILY 11/24/20 11/24/20 History [Losartan-Hctz 50-12.5 mg Tab] predniSONE 1 mg PO QID 11/24/20 11/24/20 History Calcium Carbonate + Vit D 1,500 mg PO DAILY 11/25/20 11/25/20 History [Caltrate 600 + Vit D] Calcium Carbonate [Calcium] 1,000 mg PO DAILY 11/25/20 11/25/20 History Cholecalciferol (Vitamin D3) 1,000 unit PO DAILY 11/25/20 11/25/20 History [Vitamin D] Etanercept [Enbrel Sureclick] 50 mg SQ Q7DAYS 11/25/20 11/25/20 History Magnesium Oxide [Magnesium] 400 mg PO DAILY 11/25/20 11/25/20 History Potassium Gluconate [Potassium] 550 mg PO DAILY 11/25/20 11/25/20 History Zinc 25 mg PO DAILY 11/25/20 11/25/20 History Apixaban [Eliquis] 5 mg PO BID #60 tablet 11/27/20 Rx Aspirin [Ecotrin Regular Strength] 325 mg PO 1600 tab 11/27/20 Rx Atorvastatin Calcium [Lipitor] 10 mg PO HS #30 tab 11/27/20 Rx Pantoprazole [Protonix] 40 mg PO DAILY #30 tab 11/27/20 Rx Allergies: Penicillins Allergy (Verified 11/24/20 17:43) - Discharge Instructions Discharge Instructions:: Repeat LFTs after 1 weekPCP to arrange and follow Please contact cardiology for Linq recorder - Follow up Plan Referrals: Salomon Jain MD [Active] - 7 Days Ata Guerrero MD [Primary Care Provider] - 7 Days Lucho Zuñiga MD [Active] - 14 Days Disposition: HOME Quality - Care Measures CORE MEASURES:: Stroke/TIA - Stroke/TIA Did you prescribe antithrombotic therapy?: Yes Did you prescribe anticoagulant for A Fib/Flutter?: Yes Did you prescribe a statin medication?: Yes
== END 2020-11-27 11:45 | disposition home or self-care (01) | DRG 62 ==
LOC: ERS 14:33 → 2SE 16:45 → ERHOLD 17:25 → 2SE 11-25 16:59
PROVIDERS: ADMIT Internal Medicine; ATTEND Internal Medicine
DX: I63.89 Other cerebral infarction (principal); G81.91 Hemiplegia, unspecified affecting right dominant side; Z86.16 Personal history of COVID-19; R47.01 Aphasia; L40.50 Arthropathic psoriasis, unspecified; R29.706 NIHSS score 6; R47.81 Slurred speech; N18.2 Chronic kidney disease, stage 2 (mild); I12.9 Hypertensive chronic kidney disease with stage 1 through stage 4 chronic kidney disease, or unspecified chronic kidney disease; I08.3 Combined rheumatic disorders of mitral, aortic and tricuspid valves; Z88.0 Allergy status to penicillin; Z98.890 Other specified postprocedural states; Z79.899 Other long term (current) drug therapy; Z79.52 Long term (current) use of systemic steroids; Z79.51 Long term (current) use of inhaled steroids
CPT/HCPCS: 36415; 36416; 70450; 70496; 70498; 70551; 80053; 80061; 84484; 85025; 85610; 85730; 93005; 93306; 96365; 99292; J1650; J2997; Q9967

== ENCOUNTER 2023-11-21 14:37 | Outpatient (CLI) | payer MEDICARE | END 2023-11-21 14:38 | disposition home or self-care (01) | LOC: BICMAMMO 14:37 | PROVIDERS: ATTEND Internal Medicine Rheumatology | DX: M81.0 Age-related osteoporosis without current pathological fracture (principal) | CPT/HCPCS: 77080 ==

== ENCOUNTER 2024-11-06 15:35 | Outpatient (CLI) | payer MEDICARE | END 2024-11-06 15:36 | disposition home or self-care (01) | LOC: BICRAD 15:35 | PROVIDERS: ATTEND Internal Medicine Rheumatology | DX: M25.561 Pain in right knee (principal); M25.562 Pain in left knee; M17.11 Unilateral primary osteoarthritis, right knee; M17.12 Unilateral primary osteoarthritis, left knee ==

== ENCOUNTER 2025-09-04 07:44 | Emergency (ER) | payer MEDICARE ==
[2025-09-04 08:14] LABS: #Basophils 0.03 10x3/uL (0.0-0.2); #Eosinophils 0.06 10x3/uL (0.0-0.7); #Monocytes 1.29 10x3/uL (0.11-0.59); #Neutrophils 6.99 10x3/uL (1.40-6.50); %Basophils 0.3 % (0.0-1.0); %Eosinophils 0.6 % (0.0-10.0); %Lymphocytes 15.4 % (21.0-51.0); %Monocytes 13.0 % (0.0-10.0); %Neutrophils 70.1 % (42.0-75.0); Hematocrit 41.5 % (42.0-52.0); Hemoglobin 13.8 g/dL (14.0-18.0); Mean Corpuscular Hemoglobin 33.2 pg (27.0-31.0); Mean Corpuscular Volume 99.8 fL (78.0-98.0); Platelet Count 213 10x3/uL (130-400); Red Blood Cell (RBC) Count 4.16 mill/uL (4.70-6.10); White Blood Cell (WBC) Count 9.96 10x3/uL (4.8-10.8)
[2025-09-04 08:29] LABS: ALT (SGPT) 24 U/L (Less than 45); AST (SGOT) 28 U/L (11-34); Albumin 3.7 g/dL (3.1-4.5); Alkaline Phosphatase 66 U/L (40-110); Anion Gap 14 mmol/L (10-20); BUN (Urea Nitrogen) 15 mg/dL (8.4-25.7); Bilirubin, Total 1.6 mg/dL (0.3-1.2); Calc. Creatinine Clearance 0 mL/min (70-130); Calcium 9.1 mg/dL (7.8-10.44); Carbon Dioxide 25 mmol/L (23-31); Chloride 104 mmol/L (98-107); Globulin 3.2 g/dL (2.4-3.5); Glucose 93 mg/dL (80-115); Potassium 3.6 mmol/L (3.5-5.1); Sodium 139 mmol/L (136-145)
== END 2025-09-04 10:00 | disposition home or self-care (01) ==
LOC: ERS 07:44
DX: K57.32 Diverticulitis of large intestine without perforation or abscess without bleeding (principal); R93.429 Abnormal radiologic findings on diagnostic imaging of unspecified kidney; I10 Essential (primary) hypertension; Z79.899 Other long term (current) drug therapy
CPT/HCPCS: 74177; 80053; 83690; 85025